=== PATIENT | male | born 1995 ===

== ENCOUNTER → 2024-02-27 15:15 | Outpatient (REF) | payer OTHER, SELFPAY | LOC: RCS 15:15 | PROVIDERS: ATTENDING PHYSICIAN Internal Medicine Cardiovascular Disease; FAMILY PHYSICIAN Student in an Organized Health Care Education/Training Program | DX: R07.89 Other chest pain (principal) | CPT/HCPCS: 93017 ==

== ENCOUNTER → 2024-04-11 16:06 | Outpatient (REF) | payer OTHER, SELFPAY | LOC: HWRCS 16:06 | PROVIDERS: ATTENDING PHYSICIAN Internal Medicine Cardiovascular Disease; FAMILY PHYSICIAN Student in an Organized Health Care Education/Training Program | DX: R07.89 Other chest pain (principal) | CPT/HCPCS: 93306 ==